=== PATIENT | male | born 1990 | race Caucasian/White ===

== ENCOUNTER 2016-12-03 16:16 | Emergency (ER) | payer MEDICAID ==
[~2016-12-03] VITALS: Ht 175.3 cm; Wt 99.8 kg
[~2016-12-03 16:16] MED LIST: ASPIRIN 325MG325 MG PO; BACTRIM DS 8001 TA1 PO; BUSPAR 10MG TAB10 MG PO; CARVEDILOL6.25 M1 PO; ISOSORBIDE DINI30 MG PO; KEFLEX 500MG.500 MG PO; LISINOPRIL5 MG NG; LORTAB 5/500 501 TAB PO; NOMEDS XX; SEPTRA DS 800 M1 TAB PO; VICODIN 5/500 T1 TAB PO
--- OUTSIDE RECORDS SUMMARY | 2016-12-03 16:27 | External Medical Summary Rpt ---
Author Author , Organization [employer] Address Unknown Phone Unavailable Care Team Providers Care Signals Intelligence Analyst Name Role Phone [employer] Unavailable Unavailable INC, [employer] [facility] Unavailable Unavailable [facility], [facility] EVANS, EVANS Unavailable Unavailable [facility] Unavailable Unavailable [facility], [facility] ARLEN ALLYSSA, Unavailable Unavailable ARLEN ALLYSSA JANET PATRICK, Unavailable Unavailable JANET PATRICK [id number], Unavailable Unavailable [id number] YELENA FOOTE, Unavailable Unavailable YELENA FOOTE JR ELZ, Unavailable Unavailable JR BRANDEN DIAZ NAN JESUS, ANN Unavailable Unavailable JESUS ANN JESUS, ANN Unavailable Unavailable JESUS [facility] Unavailable Unavailable INC, [facility], Unavailable Unavailable [facility] GEE EARL, GEE EARL Unavailable Unavailable [facility] Unavailable Unavailable 9, [facility] 9 [facility], Unavailable Unavailable [facility], [facility], [facility] Unavailable Unavailable OF NOT, [facility] KEELY JESUS, KEELY Unavailable Unavailable JESUS CONRADO, CONRADO Unavailable Unavailable [facility], Unavailable Unavailable [facility] CONTRERAS SCOTT, CONTRERAS SCOTT Unavailable Unavailable [facility] Unavailable Unavailable [facility], [facility] Unavailable Unavailable [facility]IANS, [facility] ELIANA RUBIO, Unavailable Unavailable ELIANA RUBIO Unavailable Unavailable SRINIVASA SMITH, Rik Galicia III, MD Purpose Continuity of Care Document - 08-26-2007 through 2016 Problems Code Diagnosis DOS Provider Status J0110 ACUTE 08-22-2016 [facility] SINUSITIS PHYSICIANS UNSPECIFIED Z6833 BODY MASS 08-22-2016 ST INDEX BMI GAIL 33.0-33.9 PHYSICIANS ADULT Z720 TOBACCO USE 08-22-2016 [facility] D40262 CELLULITIS 06-20-2016 ST OF LEFT GAIL UPPER LIMB PHYSICIANS R590 LOCALIZED 06-20-2016 ST ENLARGED GAIL LYMPH NODES PHYSICIANS Z6832 BODY MASS 06-20-2016 ST INDEX BMI GAIL 32.0-32.9 PHYSICIANS ADULT R002 PALPITATION 06-14-2016 [facility] R079 CHEST PAIN 06-14-2016 [facility] UNSPECIFIED PHYSICIANS GROUP I10 ESSENTIAL 01-21-2016 [facility] HYPERTENSIO INC N K219 GASTRO-ESOP 01-21-2016 [facility]UX [facility] DISEASE INC WITHOUT ESOPHAGITIS M56647 CUTANEOUS 01-21-2016 [facility]SCESS [facility]YSICIANS, BACK ANY PLLC PART EXCEPT BUTTOCK R41387 FURUNCLE OF 01-21-2016 [facility] BACK ANY [facility] PART EXCEPT INC BUTTOCK J209 ACUTE 06-08-2015 ST BRONCHITIS [facility] UNSPECIFIED PHYSICIANS R69 ILLNESS 06-08-2015 [facility] UNSPECIFIED INC REGION 9 I517 CARDIOMEGAL 04-25-2015 [facility] 4254 OTHER 03-01-2015 [facility] CARDIOMYOPA INC LONG 4139 OTHER AND 12-30-2014 [facility] UNSPECIFIED [facility] ANGINA INC PECT[place]IS 490 BRONCHITIS 12-30-2014 [facility] NOT [facility] SPECIFIED INC ACUTE OR CHRONIC 74055 12-30-2014 [facility] 9 4280 CONGESTIVE 12-20-2014 [facility] FAILURE INC UNSPECIFIED 07994 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-2014 [facility]ST[facility] HEART INC FAILURE 77558 ACUTE 12-20-2014 [facility] FAILURE O 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 51128 CHEST PAIN 12-20-2014 [facility]NSPECIFIED [facility] INC V1749 FAMILY 12-20-2014 [facility] HISTORY OF LAR OTHER CONSULTANTS CARDIOVASCU O LAR DISEASES 4240 MITRAL 12-14-2014 [facility] 7022 CELLULITIS 11-07-2014 ANN JESUS AND ABSCESS OF TRUNK 6829 CELLULITIS 11-07-2014 ST AND ABSCESS [facility] OF PHYSICIANS UNSPECIFIED SITE 36752 NAUSEA 07-19-2013 [facility] [address]492 PAIN IN 07-15-2013 [facility] SHOULDER [facility] 8409 SPRAIN&STRA 07-15-2013 ST IN UNSPEC GA[facility] SITE 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 V1204 PERSONAL HX 07-15-2013 ST OF [facility]IL METHICILLIN 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 305.1 305.1 05-20-2013 [place] TOBACCO USE [facility] 682.2 682.2 05-20-2013 [place] CELLULITIS [facility] 4619 ACUTE 08-01-2008 PATIENT SINUSITIS, FIRST PHYS UNSPECIFIED 7862 COUGH 08-01-2008 PATIENT FIRST PHYS 3670 HYPERMETROP 01-05-2008 TREVER FOOTE J01.10 Acute frontal sinusitis, unspecified L03.114 Cellulitis of left upper limb R59.0 Localized enlarged lymph nodes Z72.0 Tobacco use Allergies, Adverse Reactions, Alerts Type Allergy to substance Adverse Reaction to Substance Substance Reaction Severity NO KNOWN ALLERGIES Unknown Unknown Medications Na ND Rx Da Fi Fi Am Da Di Ph RX Ph St me C No te ll ll ou ys ag ar # ys at rm s nt no ma ic us Or Da si cy ia de te s n re d IS 49 06 06 60 30 00 KE Ac OS 88 -0 -3 .0 00 NT ti OR 40 4- 0- 00 00 UC ve BI 00 20 20 86 [place] DE 90 17 17 43 1 36 CV DN S PH 30 AR MA MG CY TA LL BL C, ET DB A CV S PH AR MA CY #0 54 37 LI 68 05 06 60 30 00 KE Ac SI 18 -1 -1 .0 00 NT ti NO 00 8- 6- 00 00 UC ve TN 51 20 20 83 [place] 30 17 17 59 5 3 10 CV S MG PH AR TA MA BL CY ET LL C, DB A CV S PH AR MA CY #0 54 37 CA 00 05 06 60 30 00 KE Ac RV 37 -1 -1 .0 00 NT ti ED 83 8- 6- 00 00 UC ve IL 63 20 20 83 [place] OL 20 17 17 59 5 11 CV 6. S 25 PH AR MG MA CY TA BL LL ET C, DB A CV S PH AR MA CY #0 54 37 IS 49 05 06 60 30 00 KE Ac OS 88 -0 -0 .0 00 NT ti OR 40 6- 2- 00 00 UC ve BI 00 20 20 86 [place] DE 90 17 17 43 1 36 CV DN S PH 30 AR MA MG CY TA LL BL C, ET DB A CV S PH AR MA CY #0 54 37 LI 68 04 05 60 30 00 KE Ac SI 18 -1 -1 .0 00 NT ti NO 00 7- 2- 00 00 UC ve TN 51 20 20 83 [place] IL 30 17 17 59 5 3 10 CV S MG PH AR TA MA BL CY ET LL C, DB A CV S PH AR MA CY #0 54 37 CA 00 04 05 60 30 00 KE Ac RV 37 -1 -1 .0 00 NT ti ED 83 7- 2- 00 00 UC ve IL 63 20 20 83 [place] OL 20 17 17 59 5 11 CV 6. S 25 PH AR MG MA CY TA BL LL ET C, DB A CV S PH AR MA CY #0 54 37 IS 49 04 04 60 30 00 KE Ac OS 88 -0 -2 .0 00 NT ti OR 40 4- 8- 00 00 UC ve BI 00 20 20 86 [place] DE 90 17 17 43 1 36 CV DN S PH 30 AR MA MG CY TA LL BL C, ET DB A CV S PH AR MA CY #0 54 37 AM 00 03 04 20 10 00 KE Ac OX 78 -2 -2 .0 00 NT ti -C 11 3- 1- 00 00 UC ve LA 85 20 20 88 [place] V 22 17 17 07 87 0 60 CV 5- S 12 PH 5 AR MG MA CY TA BL LL ET C, DB A CV S PH AR MA CY #0 54 37 CA 00 03 04 60 30 00 KE Ac RV 37 -1 -1 .0 00 NT ti ED 83 9- 4- 00 UC ve IL 63 20 20 83 [place] OL 20 17 17 59 5 11 CV 6. S 25 PH AR MG MA CY TA BL LL ET C, DB A CV S PH AR MA CY #0 54 37 LI 68 03 04 60 30 00 KE Ac SI 18 -1 -1 .0 00 NT ti NO 00 9- 4- 00 00 UC ve TN 51 20 20 83 [place] 30 17 17 59 5 3 10 CV S MG PH AR TA MA BL CY ET LL C, DB A CV S PH AR MA CY #0 54 37 IS 49 03 03 60 30 00 KE Ac OS 88 -0 -3 .0 00 NT ti OR 40 5- 1- 00 00 UC ve BI 00 20 20 86 [place] DE 90 17 17 43 1 36 CV DN S PH 30 AR MA MG CY TA LL BL C, ET DB A CV S PH AR MA CY #0 54 37 LI 68 02 03 60 30 00 KE Ac SI 18 -1 -1 .0 00 NT ti NO 00 4- 0- 00 00 UC ve TN 51 20 20 83 [place] IL 30 17 17 59 5 3 10 CV S MG PH AR TA MA BL CY ET LL C, DB A CV S PH AR MA CY #0 54 37 CA 00 02 03 60 30 00 KE Ac RV 37 -1 -1 .0 00 NT ti ED 83 4- 0- 00 00 UC ve IL 63 20 20 83 [place] OL 20 17 17 59 5 11 CV 6. S 25 PH AR MG MA CY TA BL LL ET C, DB A CV S PH AR MA CY #0 54 37 IS 49 02 03 60 30 00 KE Ac OS 88 -0 -0 .0 00 NT ti OR 40 7- 3- 00 00 UC ve BI 00 20 20 86 [place] DE 90 17 17 43 1 36 CV DN S PH 30 AR MA MG CY TA LL BL C, ET DB A CV S PH AR MA CY #0 54 37 CE 68 01 02 40 10 00 KE Ac PH 18 -1 -1 .0 00 NT ti AL 00 9- 7- 00 00 UC ve EX 12 20 20 86 [place] 20 17 17 66 2 54 CV 50 S 0 PH MG AR MA CA CY PS UL LL E C, DB A CV S PH AR MA CY #0 54 37 LI 68 01 02 60 30 00 KE Ac SI 18 -1 -1 .0 00 NT ti NO 00 8- 0- 00 00 UC ve TN 51 20 20 83 [place] IL 30 17 17 59 5 3 10 CV S MG PH AR TA MA BL CY ET LL C, DB A CV S PH AR MA CY #0 54 37 CA 00 01 02 60 30 00 KE Ac RV 37 -1 -1 .0 00 NT ti ED 83 8- 0- 00 00 UC ve IL 63 20 20 83 [place] OL 20 17 17 59 5 11 CV 6. S 25 PH AR MG MA CY TA BL LL ET C, DB A CV S PH AR MA CY #0 54 37 IS 49 01 02 60 30 00 KE Ac OS 88 -0 -0 .0 00 NT ti OR 40 5- 3- 00 00 UC ve BI 00 20 20 83 [place] DE 90 17 17 31 1 29 CV DN S PH 30 AR MA MG CY TA LL BL C, ET DB A CV S PH AR MA CY #0 54 37 LI 68 12 01 60 30 00 KE Ac SI 18 -1 -1 .0 00 NT ti NO 00 6- 3- 00 00 UC ve TN 51 20 20 83 [place] 30 16 17 59 5 3 10 CV S MG PH AR TA MA BL CY ET LL C, DB A CV S PH AR MA CY #0 54 37 CA 00 12 01 60 30 00 KE Ac RV 37 -1 -1 .0 00 NT ti ED 83 6- 3- 00 00 UC ve IL 63 20 20 83 [place] OL 20 16 17 59 5 11 CV 6. S 25 PH AR MG MA CY TA BL LL ET C, DB A CV S PH AR MA CY #0 54 37 IS 49 12 01 60 30 00 KE Ac OS 88 -0 -0 .0 00 NT ti OR 40 9- 9- 00 00 UC ve BI 00 20 20 83 [place] DE 90 16 17 31 1 29 CV DN S PH 30 AR MA MG CY TA LL BL C, ET DB A CV S PH AR MA CY #0 54 37 SNOW 51 12 0 No LF 07 -1 AM 90 9- Lo ET 12 20 ng HO 82 13 er XA 0 ZO Ac LE ti -T ve MP DS TA BL ET AM 00 03 03 00 28 14 CV 48 KA Ac OX 09 -0 -1 .0 S 57 LF ti IC 33 2- 2- 00 PH 32 ve IL 10 20 20 AR LI 90 09 09 MA ND N 5 CY NA 50 C 0 #5 MG 43 7 CA PS UL E LO 00 03 03 00 30 30 CV 48 KA Ac RA 78 -0 -1 .0 S 57 LF ti TA 15 2- 2- 00 PH 30 ve DI 07 20 20 AR NE 70 09 09 MA ND 1 CY NA 10 C #5 MG 43 7 TA BL ET IB 55 03 03 00 10 4 CV 48 KE Ac UP 11 -0 -1 .0 S 64 ND ti RO 10 6- 2- 00 PH 15 AL ve FE 68 20 20 AR L N 40 09 09 MA LA 80 5 CY RO 0 Y MG #5 43 TA 7 BL ET 50 03 03 00 24 12 CV 48 KA Ac 38 -0 -1 0. S 57 LF ti 30 2- 2- 00 PH 34 ve 87 20 20 0 AR 21 09 09 MA ND 6 CY NA C #5 43 7 00 12 01 00 12 4 CV 47 SC Ac 47 -2 -0 0. S 90 MONSON ti 21 3- 1- 00 PH 53 CK ve 62 20 20 0 AR 81 08 09 MA BR 6 CY IA N #5 43 7 AM 00 12 01 00 14 7 CV 47 SC Ac OX 09 -2 -0 .0 S 90 MONSON ti IC 33 3- 1- 00 PH 52 CK ve IL 10 20 20 AR LI 90 08 09 MA BR N 5 CY IA 50 N 0 #5 MG 43 7 CA PS UL E SNOW 53 09 09 00 20 10 CV 46 KA Ac LF 74 -0 -1 .0 S 77 LF ti AM 60 2- 1- 00 PH 07 ve ET 27 20 20 AR HO 20 08 08 MA ND XA 5 CY NA ZO C LE #5 -T 43 MP 7 DS TA BL ET 60 03 04 00 24 6 CV 45 No Ac 25 -0 -0 0. S 08 t ti 80 6- 7- 00 PH 45 Av ve 77 20 20 0 AR ai 01 08 08 MA la 6 CY bl e #5 43 7 AM 00 02 03 00 30 10 CV 44 No Ac OX 09 -1 -2 .0 S 82 t ti IC 33 1- 6- 00 PH 39 Av ve IL 10 20 20 AR ai LI 90 08 08 MA la N 5 CY bl 50 e 0 #5 MG 43 7 CA PS UL E LO 00 02 03 00 30 30 CV 44 No Ac RA 78 -1 -2 .0 S 82 t ti TA 15 1- 6- 00 PH 40 Av ve DI 07 20 20 AR ai NE 70 08 08 MA la 1 CY bl 10 e #5 MG 43 7 TA BL ET Vital Signs 05-20-2013 17:53 Name Value Interpretat Reference Comment ion Range BP 82 mm[Hg] Diastolic BP Systolic 152 mm[Hg] Heart 88 /min Rate/Pulse O2% 100 % Respiratory 20 /min Rate 05-20-2013 17:01 Name Value Interpretat Reference Comment ion Range Body 98.1 [degF] Temperature BP 75 mm[Hg] Diastolic BP Systolic 131 mm[Hg] Heart 90 /min Rate/Pulse O2% 98 % Respiratory 22 /min Rate Procedures Procedure DOS Code Location Performer Comment ECG 04250 [facility]INE [facility] ECG INC INC W/LEAST 12 LDS TRCG ONLY W/O I&R ECG 04695 [facility] ROUTINE 7 PHYSICIAN ECG S GROUP W/LEAST 12 LDS I&R ONLY INCISION 77565 [facility] & 6 [facility] DRAINAGE INC INC ABSCESS SIMPLE/SI NGLE INCISION 07879 FRED DIAZ, & 6 PHYSICIAN JR ELZ DRAINAGE S, PLLC ABSCESS COMPLICAT ED/MULTIP LE SUSCEPTIB 61348 [facility] LTY STDY 6 [facility] ANTIMICRB INC INC IAL MICRO/AGA R DILUTJ CUL BACT 33004 [facility] XCPT 6 [facility] URINE INC INC BLOOD/STO OL AEROBIC ISOL CUL BACT 83380 [facility] AEROBIC 6 [facility] ADDL INC INC METHS DEFINITIV E EA ISOL INCISION 48418 FRED DIAZ, & 6 PHYSICIAN JR ELZ [facility]RAIN[facility], PLLC ABSCESS COMPLICAT ED/MULTIP LE INCISION 17221 [facility] & 6 [facility] DRAIN[facility] INC INC ABSCESS SIMPLE/SI NGLE NONEMERGE A0100 [facility] NC[facility] 6 INC TRANSPORT TRANSPORT REGION 9 ATION CO ATION; L TAXI NONEMERGE A0100 [facility] 5 INC TRANSPORT TRANSPORT REGION 9 ATION CO ATION; L TAXI NONEMERGE A0100 [facility] 5 INC TRANSPORT TRANSPORT REGION 9 ATION CO ATION; L TAX[place] ECHO 94084 [place] [facility] R-T 5 MEDICAL 2D SERV W/WOM-MOD FOUNDATIO E COMPL N SPEC&COLR D NONEMERGE A0100 [facility] 5 INC TRANSPORT TRANSPORT REGION 9 ATION CO ATION; L TAXI ECG 15730 [facility] ROUTINE 5 [facility] ECG INC INC W/LEAST 12 LDS TRCG ONLY W/O I&R ECG 30203 [facility] ROUTINE 5 [facility] ECG INC INC W/LEAST 12 LDS TRCG ONLY W/O I&R NONEMERGE A0100 [facility] 5 INC TRANSPORT TRANSPORT REGION 9 ATION CO ATION; L TAXI CATHETER C1725 [facility] TRANSLUMI 5 [facility] NAL INC INC ANGIOPLAS TY NON-LASER GUIDE C1769 [facility] WIRE 5 [facility] INC INC INTRDUCR/ C1894 [facility] SHEATH 5 [facility] NOT GUID INC INC INTRACARD EP NON-LASR BLOOD 09883 [facility] COUNT 5 [facility] COMPLETE INC INC AUTO&AUTO DIFRNTL WBC BLOOD 35644 [facility] GASES ANY 5 [facility] INC INC COMBINATI ON PH PCO2 PO2 CO2 HCO3 LOCM Q9967 [facility] [phone] 5 [facility] MG/ML INC INC IODINE CONCENTRA TION PER ML PROTHROMB 66897 [facility] IN TIME 5 [facility] INC INC INJECTION J1644 [facility] HEPARIN 5 [facility] SODIUM INC INC PER 1000 UNITS THROMBOPL 96704 [facility] ASTIN 5 [facility] TIME INC INC PARTIAL PLASMA/WH OLE BLOOD R & L HRT 00188 [facility] CATH 5 CULAR MAT WINJX HRT CONSULTAN ART& L TS O VENTR IMG BASIC 25119 [facility] METABOLIC 5 [facility] PANEL INC INC CALCIUM TOTAL NONEMERGE A0100 [facility] 5 INC TRANSPORT [facility]SP[facility] 9 [facility]; L TAXI ECHO 19258 BARBARA CHAVEZ [facility] R-T 5 MEDICAL 2D SERV W/WOM-MOD FOUNDATIO E COMPL N SPEC&COLR D NONEMERGE A0100 [facility] 5 INC TRANSPORT [facility] AT[facility]; L TAXI RADIOLOGI 76174 SAMIA Macedo 5 MEDICAL PATRICK EXAMINATI IMAGING ON CHEST ASS SINGLE VIEW FRONTAL BASIC [address] METABOLIC 4 [facility]IL PANEL MED CTR MED CTR CALCIUM HOTEL HOUSEKEEPER ST [facility]OTEL HOUSEK[address] ST TOTAL SEDIMENTA [address] TION RATE 4 GAIL GAIL RBC MED CTR MED CTR AUTOMATED HOTEL HOUSEK[address] [facility]LO[address] COUNT 4 GAIL GAIL COMPLETE MED CTR MED CTR AUTO&AUTO HOTEL HOUSEKEEPER ST HOTEL HOUSEKEEPER ST DIFRNTL WBC SHOULDER L3650 [facility] 4 TECHNOLOG TECHNOLOG FIG 8 IES INC IES INC ABDUCT RESTRAINE R PREFAB RADEX 95244 RADIOLOGY ARLEN SHOULDER 4 ALLYSSA COMPLETE ASSOCIATE MINIMUM 2 S OF NOTH VIEWS DETERMINA 58174 QAMAR FOOTE, TION 8 YELENA Miranda REFRACTIV E STATE FRAMES V2020 QAMAR FOOTE, PURCHASES 8 YELENA Miranda SPHERE V2100 QAMAR FOOTE, SINGLE 8 YELENA Ruben YELENA Miranda VISION PLANO +/- 4.00 PER LENS FITTING 12916 QAMAR FOOTE, SPECTACLE 8 YELENA Miranda S XCPT APHAKIA MONOFOCAL OPHTH 17076 QAMAR FOOTE, MEDICAL 8 YELENA Miranda YELENA Miranda XM&EVAL COMPRHNSV ESTAB PT 1/> OTHER 86.04 Rik SKIN & E. SUBQ I Grayson Carmona III Encounters Encounter Start End Date Code Location Performer Type Date OFFICE [facility] 7 GAIL T VISIT 15 PHYSICIAN MINUTES S OFFICE [facility]94[address] [facility] 7 7 GAIL T VISIT 15 PHYSICIAN MINUTES S HOSPITAL [facility] - 7 7 [facility]PAT[facility]EN INC T [facility] - 6 6 [facility] OUTPATIEN INC T EMERGENCY 47269 [facility] 6 6 [facility] DEPARTMEN INC T VISIT MODERATE SEVERITY EMERGENCY 21071 FRED DIAZ, 6 6 PHYSICIAN JR BRANDEN SARGENT S PLLC T VISIT HIGH/URGE NT SEVERITY EMERGENCY 17013 Abelardo ORR 6 PHYSICIAN JR BRANDEN SARGENT S PLLC T VISIT MODERATE SEVERITY EMERGENCY 74839 [facility] 6 6 [facility] DEPARTMEN INC T VISIT HIGH/URGE NT SEVERITY HOSPITAL [facility] - 6 6 [facility] OUTPATIEN [facility] T OFFICE 08246 [facility] OUTPATIEN 6 6 GAIL JESUS T VISIT 15 PHYSICIAN MINUTES HOSPITAL [facility] - 5 5 [facility] OUTPATIEN INC [facility] - 5 5 [facility] OUTPATIEN [facility] - 5 5 [facility] OUTPATIEN [facility] T OFFICE 56244 [facility] OUTPATIEN 5 5 GAIL JESUS T VISIT 15 PHYSICIAN MINUTES S EMERGENCY 07140 ANN JUAREZ 5 5 JESUS JESUS DEPARTMEN T VISIT HIGH/URGE NT SEVERITY HOSPITAL ST - 4 4 GAIL OUTPATIEN MED CTR T [facility] ST - 4 4 GAIL OUTPATIEN MED CTR T [facility] EMERGENCY 76753 4 4 GAIL DEPARTMEN MED CTR T VISIT [facility] MODERATE SEVERITY Emergency NÉSTOR Galicia (ER) 3 15:11 3 17:54 [facility] Rik Solis OFFICE 82502 PATIENT RUBIOJORDAN 9 9 FIRST ELIANA T VISIT PHYS 15 MINUTES
--- OUTSIDE RECORDS SUMMARY | 2016-12-03 16:27 | External Medical Summary Rpt ---
Author Author , Organization [employer] Address Unknown Phone Unavailable Care Team Providers Care Film And Video Editor Name Role Phone [employer] Unavailable Unavailable [...] JR ELZ, Unavailable Unavailable JR BRANDEN DIAZ ANN JESUS, ANN Unavailable Unavailable JESUS ANN JESUS, ANN Unavailable Unavailable [facility] Unavailable Unavailable INC, [facility], Unavailable Unavailable [facility] Un[facility], [facility] GEE EARL, GEE EARL Unavailable Unavailable [facility] Unavailable Unavailable 9, [facility], Unavailable Unavailable [facility], [facility], [facility] Unavailable Unavailable OF NOT, [facility] KEELY JESUS, KEELY Unavailable Unavailable JESUS CONRADO, CONRADO Unavailable Unavailable [facility], Unavailable Unavailable [facility] CONTRERAS SCOTT, CONTRERAS SCOTT Unavailable Unavailable [facility] Unavailable Unavailable ENGINEERING TEST SPECIALIST ST, [facility] ENGINEERING TEST SPECIALIST [facility] Unavailable Unavailable [facility]ICIANS, [facility] EILANA RUBIO, Unavailable Unavailable ELIANA RUBIO Unavailable Unavailable SRINIVASA SMITH, Rik Galicia III, MD Purpose Continuity of Care Document - 08-26-2007 through 2016 Problems Code Diagnosis DOS Provider Status J0110 ACUTE 08-22-2016 [facility] SINUSITIS PHYSICIANS UNSPECIFIED Z6833 BODY MASS 08-22-2016 ST INDEX BMI GAIL 33.0-33.9 PHYSICIANS ADULT Z720 TOBACCO USE 08-22-2016 ST [facility] PHYSICIANS J94193 CELLULITIS 06-20-2016 ST OF LEFT GAIL UPPER LIMB PHYSICIANS R590 LOCALIZED 06-20-2016 ST ENLARGED GAIL LYMPH NODES PHYSICIANS Z6832 BODY MASS 06-20-2016 ST INDEX BMI GAIL 32.0-32.9 PHYSICIANS ADULT R002 PALPITATION 06-14-2016 [facility] INC R079 CHEST PAIN 06-14-2016 [facility] UNSPECIFIED PHYSICIANS GROUP I10 ESSENTIAL 01-21-2016 [facility] HYPERTENSIO INC N K219 GASTRO-ESOP 01-21-2016 [facility] H REFLUX [facility] DISEASE INC WITHOUT ESOPHAGITIS H34195 CUTANEOUS 01-21-2016 [facility] ABSCESS PHYSICIANS, BACK ANY PLLC PART EXCEPT BUTTOCK U24539 FURUNCLE OF 01-21-2016 [facility] BACK ANY [facility] PART EXCEPT INC BUTTOCK J209 ACUTE 06-08-2015 ST BRONCHITIS [facility] UNSPECIFIED PHYSICIANS R69 ILLNESS 06-08-2015 [facility] UNSPECIFIED INC REGION 9 I517 CARDIOMEGAL 04-25-2015 [facility] 4254 OTHER 03-01-2015 [facility] CARDIOMYOPA INC LONG 4139 OTHER AND 12-30-2014 [facility] UNSPECIFIED [facility] ANGINA INC PECTORIS 490 BRONCHITIS 12-30-2014 [facility] NOT [facility] SPECIFIED INC ACUTE OR CHRONIC 52098 12-30-2014 [facility] 9 4280 CONGESTIVE 12-20-2014 [facility] FAILURE INC UNSPECIFIED 86661 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-2014 [facility] SYSTOLIC [facility] HEART INC FAILURE 40303 ACUTE 12-20-2014 [facility] FAILURE O 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 51061 CHEST PAIN 12-20-2014 [facility] UNSPECIFIED [facility] INC V1749 FAMILY 12-20-2014 [facility] HISTORY OF LAR OTHER CONSULTANTS CARDIOVASCU O LAR DISEASES 4240 MITRAL 12-14-2014 [facility] 2822 CELLULITIS 11-07-2014 ANN JESUS AND ABSCESS OF TRUNK 6829 CELLULITIS 11-07-2014 ST AND ABSCESS [facility] OF PHYSICIANS UNSPECIFIED SITE 08010 NAUSEA 07-19-2013 [facility] ENGINEERING TEST [place]IST [facility] [address]56 PAIN IN 07-15-2013 RAD[facility]OLOGY JOINT, ASSOCIATES [facility] 8409 SPRAIN&STRA 07-15-2013 ST IN UNSPEC [facility] SITE MED CTR ENGINEERING TEST SPECIALIST SHOULDER&UP ST PER ARM V1204 PERSONAL HX 07-15-2013 ST OF [facility] METHIC[facility]IN [facility] CTR ENGINEERING TEST SPECIALIST RESIST ST STAPH AUREUS 305.1 305.1 05-20-2013 Aurelia TOBACCO USE [facility] 682.2 682.2 05-20-2013 Aurelia CELLULITIS [facility] 4619 ACUTE 08-01-2008 PATIENT SINUSITIS, FIRST PHYS [...] 00 8- 6- 00 00 UC ve [place] 51 20 20 83 [place] 30 [...] 00 7- 2- 00 00 UC ve [place] 51 20 20 83 [place] 30 [...] 00 9- 4- 00 00 UC ve [place] 51 20 20 83 [place] 30 [...] 00 4- 0- 00 00 UC ve [place] 51 20 20 83 [place] 30 [...] 00 8- 0- 00 00 UC ve [place] 51 20 20 83 [place] 30 [...] 00 6- 3- 00 00 UC ve [place] 51 20 20 83 [place] 30 [...] 20 AR LI 90 09 09 MA NC N 5 CY NA 50 C 0 #5 MG 43 7 CA PS UL E LO 00 03 03 00 30 30 CV 48 KA Ac RA 78 -0 -1 .0 S 57 LF ti TA 15 2- 2- 00 PH 30 ve DI 07 20 20 AR NE 70 09 09 MA NC 1 CY NA 10 C #5 MG [...] 20 0 AR 21 09 09 MA NC 6 CY NA C #5 43 7 [...] 20 AR HO 20 08 08 MA NC XA 5 CY NA ZO C LE [...] Procedure DOS Code Location Performer Comment ECG 41657 [facility] ROUTINE 7 [facility] ECG INC INC W/LEAST 12 LDS TRCG ONLY W/O I&R ECG 86583 [facility] R[facility] 7 PHYSICIAN ECG S GROUP W/LEAST 12 LDS I&R ONLY INCISION 20535 [facility] & 6 [facility] DRAINAGE INC INC ABSCESS SIMPLE/SI NGLE INCISION 73917 FRED DIAZ, & 6 PHYSICIAN JR ELZ DRAINAGE S, PLLC ABSCESS COMPLICAT ED/MULTIP LE SUSCEPTIB 83689 [facility] LTY STDY 6 [facility] [place] [place] [facility] ANTIMICRB INC INC IAL MICRO/AGA R DILUTJ CUL BACT 26813 [facility] XCPT 6 [facility] [place] [place] [facility] URINE INC INC BLOOD/STO OL AEROBIC ISOL CUL BACT 55351 [facility] AEROBIC 6 [facility] ADDL INC INC METHS DEFINITIV E EA ISOL INCISION 71320 FRED DIAZ, & 6 PHYSICIAN JR ELZ DRAINAGE S, PLLC ABSCESS COMPLICAT ED/MULTIP LE INCISION 39358 [facility] & 6 MEM HOS[facility] MEM [...] 9 ATION CO ATION; L TAXI ECHO 92465 [place] [facility] R-T 5 MEDICAL 2D SERV W/WOM-MOD FOUNDATIO E COMPL N SPEC&COLR D NONEMERGE A0100 LKLP CAC [facility] NCY 5 INC TRANSPORT TRANSPORT REGION 9 ATION CO ATION; L TAXI ECG 85037 [facility] ROUTINE 5 MEM [facility] ECG INC INC W/LEAST 12 LDS TRCG ONLY W/O I&R ECG 05251 [facility] ROUTINE 5 [facility] ECG INC INC W/LEAST 12 LDS TRCG ONLY W/O I&R NONEMERGE A0100 LKLP CAC [facility] NCY 5 INC TRANSPORT TRANSPORT REGION 9 ATION CO ATION; L TAXI CATHETER C1725 [facility] TRANSLUMI 5 [facility] NAL INC INC ANGIOPLAS TY NON-LASER GUIDE C1769 [facility] WIRE 5 [facility] INC INC INTRDUCR/ C1894 [facility] SHEATH 5 [facility] NOT GUID INC INC INTRACARD EP NON-LASR BLOOD 41683 [facility] COUNT 5 [facility] COMPLETE INC INC AUTO&AUTO DIFRNTL WBC BLOOD 19738 [facility] GASES ANY 5 [facility] INC INC COMBINATI ON PH PCO2 PO2 CO2 HCO3 LOCM Q9967 [facility] [phone] 5 [facility] MG/ML INC INC IODINE CONCENTRA TION PER ML PROTHROMB 77238 [facility] IN TIME 5 [facility] INC INC INJECTION J1644 [facility] HEPARIN 5 [facility] SODIUM INC INC PER 1000 UNITS THROMBOPL 18797 [facility] ASTIN 5 [facility] TIME INC INC PARTIAL PLASMA/WH OLE BLOOD R & L HRT 56748 CARDIOVAS CONRADO CATH 5 CULAR MAT WINJX HRT CONSULTAN ART& L TS O VENTR IMG BASIC 58228 [facility] METABOLIC 5 [facility] PANEL INC INC CALCIUM TOTAL NONEMERGE A0100 LKLP CAC [place] NCY 5 INC TRANSPORT TRANSPORT REGION 9 [facility] AT[facility]; L TAXI ECHO 70736 BARBARA CHAVEZ TTHRC R-T 5 MEDICAL 2D SERV W/WOM-MOD FOUNDATIO E COMPL N SPEC&COLR D NONEMERGE A0100 LKLP CAC [place] NCY 5 INC TRANSPORT TRANSPORT REGION 9 ATFORMERLY [facility], [facility] CO ATION; L TAXI RADIOLOGI 11460 SAMIA Macedo 5 MEDICAL PATRICK EXAMINATI IMAGING ON CHEST ASS SINGLE VIEW FRONTAL BASIC [address] METABOLIC 4 [facility]IL GAIL PANEL MED CTR MED CTR CALCIUM ENGINEERING TEST SPECIALIST ST ENGINEERING TEST SPECIALIST ST TOTAL SEDIMENTA [address] TION RATE 4 GAIL GAIL RBC MED CTR MED CTR AUTOMATED ENGINEERING TEST SPECIALIST ST ENGINEERING TEST SPECIALIST ST BLOOD [address] COUNT 4 GAIL GAIL COMPLETE MED CTR MED CTR AUTO&AUTO ENGINEERING TEST SPECIALIST ST ENGINEERING TEST SPECIALIST ST DIFRNTL WBC SHOULDER L3650 [facility] 4 TECHNOLOG TECHNOLOG FIG 8 IES INC IES INC ABDUCT RESTRAINE R PREFAB RADEX 78514 RADIOLOGY ARLEN SHOULDER 4 ALLYSSA COMPLETE ASSOCIATE MINIMUM 2 S OF NOTH VIEWS DETERMINA 98907 QAMAR FOOTE, TION 8 YELENA Miranda REFRACTIV E STATE FRAMES V2020 QAMAR FOOTE, PURCHASES 8 YELENA Miranda SPHERE V2100 QAMAR FOOTE, SINGLE 8 YELENA Ruben YELENA Miranda VISION PLANO +/- 4.00 PER LENS FITTING 81915 QAMAR FOOTE, SPECTACLE 8 YELENA Miranda S XCPT APHAKIA MONOFOCAL OPHTH 74121 QAMAR FOOTE, MEDICAL 8 YELENA Miranda YELENA Miranda XM&EVAL COMPRHNSV ESTAB PT 1/> OTHER 86.04 Rik SKIN & E. SUBQ I Grayson Carmona III Encounters Encounter Start End Date Code Location Performer Type Date OFFICE [facility]5650 [facility] 7 [facility]IL T VISIT 15 PHYSICIAN MINUTES S OFFICE 0[address] [facility] 7 7 GAIL T VISIT 15 PHYSICIAN MINUTES S HOSPITAL [facility] 7 7 [facility] OUTPATIEN INC T [facility] - 6 6 [facility] OUTPATIEN INC T EMERGENCY 62948 [facility] 6 6 [facility] DEPARTMEN INC T VISIT MODERATE SEVERITY EMERGENCY 09824 FRED DIAZ, 6 6 PHYSICIAN JR BRANDEN SARGENT S PLLC T VISIT HIGH/URGE NT SEVERITY EMERGENCY 49401 Abelardo ORR 6 PHYSICIAN JR BRANDEN SARGENT S PLLC T VISIT MODERATE SEVERITY EMERGENCY 11716 [facility] 6 6 [facility] DEPARTMEN INC T VISIT HIGH/URGE NT SEVERITY HOSPITAL [facility] - 6 6 [facility] OUTPATIEN [facility] T OFFICE 79953 [facility] OUTPATIEN 6 6 GAIL JESUS T VISIT 15 PHYSICIAN MINUTES HOSPITAL [facility] - 5 5 [facility] OUTPATIEN INC [facility] - 5 5 [facility] OUTPATIEN [facility] H[facility] - 5 5 [facility] OUTPATIEN [facility] T OFFICE 20811 [facility] OUTPATIEN 5 5 GAIL JESUS T VISIT 15 PHYSICIAN MINUTES S EMERGENCY 09011 ANN JUAREZ 5 5 JESUS JESUS DEPARTMEN T VISIT HIGH/URGE NT SEVERITY HOSPITAL ST - 4 4 GAIL OUTPATIEN MED CTR T [facility] ST - 4 4 GAIL OUTPATIEN MED CTR T [facility] EMERGENCY 61115 4 4 GAIL DEPARTMEN MED CTR T VISIT [facility] MODERATE SEVERITY Emergency NÉSTOR Galicia (ER) 3 15:11 3 17:54 [facility] Rik Solis OFFICE 16571 PATIENT RUBIOJORDAN 9 9 FIRST ELIANA T VISIT PHYS 15 MINUTES
--- OUTSIDE RECORDS SUMMARY | 2016-12-03 16:29 | External Medical Summary Rpt ---
Author Author , Organization [employer] Address Unknown Phone Unavailable Care Team Providers Care Betting Clerk Name Role Phone [employer] Unavailable Unavailable INC, [employer] [facility] Unavailable Unavailable [facility]ATION [facility], [facility] EVANS, EVANS Unavailable Unavailable [facility] Unavailable Unavailable [facility], [facility] ARLEN ALLYSSA, Unavailable Unavailable ARLEN ALLYSSA JANET PATRICK, Unavailable Unavailable JANET PATRICK [facility], Unavailable Unavailable [facility] YELENA FOOTE, Unavailable Unavailable YELENA FOOTE JR ELZ, Unavailable Unavailable JR BRANDEN DIAZ ANN JESUS, ANN Unavailable Unavailable JESUS ANN JESUS, ANN Unavailable Unavailable JESUS [facility] Unavailable Unavailable INC, [facility], Unavailable Unavailable [facility] Un[facility] Un[facility], [facility] GEE EARL, GEE EARL Unavailable Unavailable [facility] Unavailable Unavailable 9, [facility], [facility]available Unavailable [facility], [facility], [facility] Unavailable Unavailable [facility], [facility] KEELY JESUS, KEELY Unavailable Unavailable JESUS KAILA BRADY Unavailable Unavailable [facility] Unavailable Unavailable CONTRERAS SCOTT, BEN SCOTT Unavailable Unavailable [facility] Unavailable Unavailable FUEL ATTENDANT , [facility] FUEL ATTENDANT [facility] Unavailable Unavailable PHYSICIANS, [facility] ELIANA RUBIO, Unavailable Unavailable ELIANA RUBIO Purpose Continuity of Care Document - 08-26-2007 through 2016 Problems Code Diagnosis DOS Provider Status J0110 ACUTE 08-22-2016 FRONTAL [facility]IL SINUSITIS PHYSICIANS UNSPECIFIED Z6833 BODY MASS 08-22-2016 ST INDEX BMI GAIL 33.0-33.9 PHYSICIANS ADULT Z720 TOBACCO USE 08-22-2016 [facility] PH[facility]ICIANS R11945 CELLULITIS 06-20-2016 ST OF LEFT GAIL UPPER LIMB PHYSICIANS R590 LOCALIZED 06-20-2016 ENLARGED GAIL LYMPH NODES PHYSICIANS Z6832 BODY MASS 06-20-2016 ST INDEX BMI GAIL 32.0-32.9 PHYSICIANS ADULT R002 PALPITATION 06-14-2016 [facility] INC R079 CHEST PAIN 06-14-2016 [facility] UNSPECIFIED PHYSICIANS GROUP I10 ESSENTIAL 01-21-2016 [facility] HYPERTENSIO INC N K219 GASTRO-ESOP 01-21-2016 [facility] H REFLUX [facility] DISEASE INC WITHOUT ESOPHAGITIS Z80822 CUTANEOUS 01-21-2016 [facility] ABSCESS PHYSICIANS, BACK ANY PLLC PART EXCEPT BUTTOCK S31175 FURUNCLE OF 01-21-2016 [facility] BACK ANY [facility] PART EXCEPT INC BUTTOCK J209 ACUTE 06-08-2015 ST BRONCHITIS GAIL UNSPECIFIED PHYSICIANS R69 ILLNESS 06-08-2015 [facility] CAC UNSPECIFIED INC REGION 9 I517 CARDIOMEGAL 04-25-2015 [facility] 4254 OTHER 03-01-2015 [facility] CARDIOMYOPA INC LONG 4139 OTHER AND 12-30-2014 [facility] UNSPECIFIED [facility] ANGINA INC PECTORIS 490 BRONCHITIS 12-30-2014 [facility] NOT [facility] SPECIFIED INC ACUTE OR CHRONIC 73927 12-30-2014 [facility] CAC INC REGION 9 4280 CONGESTIVE 12-20-2014 [facility] FAILURE INC UNSPECIFIED 44950 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-2014 [facility] SYSTOLIC [facility] HEART INC FAILURE 22855 ACUTE 12-20-2014 [facility] FAILURE O 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 71765 CHEST PAIN 12-20-2014 [facility] UNSPECIFIED [facility] INC V1749 FAMILY 12-20-2014 [facility] HISTORY OF LAR OTHER CONSULTANTS CARDIOVASCU O LAR DISEASES 4240 MITRAL 12-14-2014 [employer] [facility] 6822 CELLULITIS 11-07-2014 ANN JESUS AND ABSCESS OF TRUNK 6829 CELLULITIS 11-07-2014 ST AND ABSCESS [facility]IL OF PHYSICIANS UNSPECIFIED SITE 99902 NAUSEA 07-19-2013 [facility] FUEL ATTENDANT ST [address]7086 PAIN IN 07-15-2013 [facility], ASSOCIATES [facility] 8409 SPRAIN&STRA 07-15-2013 ST IN UNSPEC GAIL SITE MED CTR FUEL ATTENDANT SHOULDER&UP ST PER ARM V1204 PERSONAL HX 07-15-2013 [facility] METHICILLIN MED CTR FUEL ATTENDANT RESIST ST STAPH AUREUS 4619 ACUTE 08-01-2008 PATIENT SINUSITIS, FIRST PHYS UNSPECIFIED 7862 COUGH 08-01-2008 PATIENT FIRST PHYS 3670 HYPERMETROP 01-05-2008 TREVER FOOTE Medications Na ND Rx Da Fi Fi [...] 00 8- 6- 00 00 UC ve [place] 51 20 20 83 [place] 30 [...] 00 7- 2- 00 00 UC ve [place] 51 20 20 83 [place] 30 [...] 00 9- 4- 00 00 UC ve [place] 51 20 20 83 [place] 30 17 17 59 5 3 10 CV S MG PH AR TA MA BL CY ET LL C, DB A CV S PH AR MA CY #0 54 37 CA 00 03 04 60 30 00 KE Ac RV 37 -1 -1 .0 00 NT ti ED 83 9- 4- 00 00 UC ve IL 63 20 [...] 00 4- 0- 00 00 UC ve [place] 51 20 20 83 [place] 30 [...] 00 8- 0- 00 00 UC ve [place] 51 20 20 83 [place] 30 [...] 00 6- 3- 00 00 UC ve [place] 51 20 20 83 [place] 30 [...] CY #0 54 37 AM 00 03 03 00 28 14 CV 48 KA Ac OX 09 -0 -1 .0 S 57 LF ti IC 33 2- 2- 00 PH 32 ve IL 10 20 20 AR LI 90 09 09 MA ME N 5 CY NA 50 C 0 #5 MG 43 7 CA PS UL E LO 00 03 03 00 30 30 CV 48 KA Ac RA 78 -0 -1 .0 S 57 LF ti TA 15 2- 2- 00 PH 30 ve DI 07 20 20 AR NE 70 09 09 MA ME 1 CY NA 10 C #5 MG [...] 20 0 AR 21 09 09 MA ME 6 CY NA C #5 43 7 [...] 20 AR HO 20 08 08 MA ME XA 5 CY NA ZO C LE #5 -T 43 MP 7 DS TA BL ET 60 03 04 00 24 6 CV 45 No Ac 25 -0 -0 0. S 08 t ti 80 6 PH 45 Av ve 77 20 20 0 AR ai 01 08 08 MA la 6 CY bl e #5 43 7 AM 00 02 03 00 30 10 CV 44 No Ac OX 09 -1 -2 .0 S 82 t ti IC 33 6 PH 39 Av ve IL 10 20 20 AR ai LI 90 08 08 MA la N 5 CY bl 50 e 0 #5 MG 43 7 CA PS UL E LO 00 02 03 00 30 30 CV 44 No Ac RA 78 -1 -2 .0 S 82 t ti TA 15 PH 40 Av ve DI 07 20 20 AR ai NE 70 08 08 MA la 1 CY bl 10 e #5 MG 43 7 TA BL ET Procedures Procedure DOS Code Location Performer Comment ECG 84465 [facility] ROUTINE 7 PHYSICIAN ECG S GROUP W/LEAST 12 LDS I&R ONLY ECG 47430 [facility] ROUTINE 7 [facility] ECG INC INC W/LEAST 12 LDS TRCG ONLY W/O I&R SUSCEPTIB 56842 [facility] LTY STDY 6 [facility] ANTIMICRB INC INC IAL MICRO/AGA R DILUTJ CUL BACT 94484 [facility] XCPT 6 [facility] URINE INC INC BLOOD/STO OL AEROBIC ISOL CUL BACT 80894 [facility] AEROBIC 6 [facility] ADDL INC INC METHS DEFINITIV E EA ISOL INCISION 97351 [facility] & 6 [facility] DRAINAGE INC INC ABSCESS SIMPLE/SI NGLE INCISION 10301 FRED DIAZ & 6 PHYSICIAN JR ELZ DRAINAGE S, PLLC ABSCESS COMPLICAT ED/MULTIP LE INCISION 10631 FRED DIAZ & 6 PHYSICIAN JR ELZ DRAINAGE S, PLLC ABSCESS COMPLICAT ED/MULTIP LE INCISION 68484 [facility] & 6 [facility] DRAINAGE INC INC ABSCESS SIMPLE/SI NGLE NONEMERGE A0100 LKLP CAC [facility] NCY 6 INC [facility]SP[facility]; L TAXI NONEMERGE A0100 LKLP CAC [facility] NCY 5 INC TRANSPORT TRANSPORT REGION 9 ATION CO ATION; L TAXI ECHO 67019 [place] [facility] R-T 5 MEDICAL 2D SERV W/WOM-MOD FOUNDATIO E COMPL N SPEC&COLR D NONEMERGE A0100 LKLP CAC [facility] NCY 5 INC TRANSPORT TRANSPORT REGION 9 ATION CO ATION; L TAXI NONEMERGE A0100 LKLP CAC VAZQUEZS NCY 5 INC TRANSPORT [facility] AT[facility]; L TAXI ECG 98196 [facility] ROUTINE 5 [facility] ECG INC INC W/LEAST 12 LDS TRCG ONLY W/O I&R ECG 10051 [facility] ROUTINE 5 [facility] ECG INC INC W/LEAST 12 LDS TRCG ONLY W/O I&R NONEMERGE A0100 LKLP CAC BENMICHAELS NCY 5 INC TRANSPORT TRANSPORT REGION [facility] ATION; L TAXI R & L HRT 37469 [facility] CATH 5 [facility] WINJX HRT INC INC ART& L VENTR IMG CATHETER C1725 [facility] TRANSLUMI 5 [facility] NAL INC INC ANGIOPLAS TY NON-LASER GUIDE C1769 [facility] WIRE 5 [facility] INC INC LOCM Q9967 [facility] 300-399 5 [facility] MG/ML INC INC IODINE CONCENTRA TION PER ML BASIC 30354 [facility] METABOLIC 5 [facility] PANEL INC INC CALCIUM TOTAL INTRDUCR/ C1894 [facility] SHEATH 5 [facility] NOT GUID INC INC INTRACARD EP NON-LASR BLOOD 48596 [facility] GASES ANY 5 [facility] INC INC COMBINATI ON PH PCO2 PO2 CO2 HCO3 THROMBOPL 45861 [facility] ASTIN 5 [facility] TIME INC INC PARTIAL PLASMA/WH OLE BLOOD BLOOD 18306 [facility] COUNT 5 [facility] COMPLETE INC INC AUTO&AUTO DIFRNTL WBC INJECTION J1644 [facility] HEPARIN 5 [facility] SODIUM INC INC PER 1000 UNITS PROTHROMB 50682 [facility] IN TIME 5 [facility] INC INC NONEMERGE A0100 LKLP CAC [facility] NCY 5 INC TRANSPORT TRANSPORT REGION 9 ATION CO ATION; L TAXI NONEMERGE A0100 LKLP CAC [facility] NCY 5 INC TRANSPORT TRANSPORT REGION 9 ATION CO ATION; L TAXI ECHO 87181 BARBARA CONTRERAS SCOTT TTHRC R-T 5 MEDICAL 2D SERV W/WOM-MOD FOUNDATIO E COMPL N SPEC&COLR D RADIOLOGI 38756 [place] JANET C 5 MEDICAL PATRICK EXAMINATI IMAGING ON CHEST ASS SINGLE VIEW FRONTAL SEDIMENTA [address] TION RATE 4 GAIL GAIL RBC MED CTR MED CTR AUTOMATED FUEL ATTENDANT ST FUEL ATTENDANT ST BASIC [address] METABOLIC 4 GAIL GAIL PANEL MED CTR MED CTR CALCIUM FUEL ATTENDANT ST FUEL ATTENDANT ST TOTAL BLOOD [address] COUNT 4 GAIL GAIL COMPLETE MED CTR MED CTR AUTO&AUTO FUEL ATTENDANT ST FUEL ATTENDANT ST DIFRNTL WBC SHOULDER L3650 [facility] 4 TECHNOLOG TECHNOLOG FIG 8 IES INC IES INC ABDUCT RESTRAINE R PREFAB RADEX 33206 RADIOLOGY ARLEN SHOULDER 4 ALLYSSA COMPLETE ASSOCIATE MINIMUM 2 S OF NOTH VIEWS DETERMINA 25615 QAMAR FOOTE TION 8 YELENA Miranda REFRACTIV E STATE SPHERE V2100 QAMAR FOOTE SINGLE 8 YELENA Miranda VISION PLANO +/- 4.00 PER LENS OPHTH 89597 QAMAR FOOTE, MEDICAL 8 YELENA Miranda XM&EVAL COMPRHNSV ESTAB PT 1/> FITTING 40829 QAMAR FOOTE SPECTACLE 8 YELENA Miranda S XCPT APHAKIA MONOFOCAL FRAMES V2020 QAMAR FOOTE PURCHASES 8 YELENA Miranda Encounters Encounter Start End Date Code Location Performer Type Date OFFICE 74381 [facility] 7 7 [facility] VISIT 15 PHYSICIAN MINUTES S OFFICE 95318 [facility] 7 7 GAIL T VISIT 15 PHYSICIAN MINUTES S HOSPITAL [facility] - 7 7 [facility] OUTPATIEN INC T [facility] EMERGENCY [id number] [facility] 6 6 [facility] T VISIT MODERATE SEVERITY EMERGENCY 11138 FRED IDAZ, 6 6 PHYSICIAN JR [facility]TER[facility], [facility] T VISIT HIGH/URGE NT SEVERITY EMERGENCY 59404 FRED DIAZ, 6 6 PHYSICIAN JR [facility]TERO [facility], [facility] T VISIT MODERATE SEVERITY HOSPITAL [facility] - 6 6 [facility] T EMERGENCY 00513 [facility] 6 6 [facility] T VISIT HIGH/URGE NT SEVERITY OFFICE [id number] [facility] 6 6 GAIL JESUS T VISIT 15 PHYSICIAN MINUTES S [facility]OSP[facility] - [facility] 5 [facility] 5 [facility] 5 [facility] T OFFICE [id number] [facility] 5 5 GAIL JESUS T VISIT 15 PHYSICIAN MINUTES S EMERGENCY [id number] ANN JUAREZ 5 5 [facility]URGE NT SEVERITY [facility] - 4 4 [facility] - 4 4 [facility] T [facility]UEL ATTENDANT EMERGENCY [address] [facility] 4 4 GAIL JERRY DEPARTMEN MED CTR T VISIT MODERATE SEVERITY OFFICE [id number] PATIENT JORDAN RUBIO 9 9 FIRST ELIANA T VISIT PHYS 15 MINUTES
--- OUTSIDE RECORDS SUMMARY | 2016-12-03 16:29 | External Medical Summary Rpt ---
Author Author , Organization [employer] Address Unknown Phone Unavailable Care Team Providers Care Recruiting Team Lead Name Role Phone [employer] Unavailable Unavailable [...] Unavailable Unavailable INC, [facility], Unavailable Unavailable [facility] Un[facility] Un[facility], [facility] GEE EARL, GEE EARL Unavailable Unavailable [facility] Unavailable Unavailable 9, [facility], Unavailable Unavailable [facility], [facility], [facility] Unavailable Unavailable [facility], [facility] KEELY JESUS, KEELY Unavailable Unavailable JESUS KAILA BRADY Unavailable Unavailable [facility] Unavailable Unavailable CONTRERAS SCOTT, BEN SCOTT Unavailable Unavailable [facility] Unavailable Unavailable [facility] , [facility] Unavailable Unavailable [facility]ANS, [facility] ELIANA RUBIO, Unavailable Unavailable ELIANA RUBIO Purpose Continuity of Care Document - 08-26-2007 through 2016 Problems Code Diagnosis DOS Provider Status J0110 ACUTE 08-22-2016 FRONTAL GAIL SINUSITIS PHYSICIANS UNSPECIFIED Z6833 BODY MASS 08-22-2016 ST INDEX BMI GAIL 33.0-33.9 PHYSICIANS ADULT Z720 TOBACCO USE 08-22-2016 [facility] [id number] CELLULITIS 06-20-2016 ST OF LEFT GAIL UPPER LIMB PHYSICIANS R590 LOCALIZED 06-20-2016 ENLARGED GAIL LYMPH NODES PHYSICIANS Z6832 BODY MASS 06-20-2016 ST INDEX BMI GAIL 32.0-32.9 PHYSICIANS ADULT R002 PALPITATION 06-14-2016 [facility] R079 CHEST PAIN 06-14-2016 [facility] UNSPECIFIED PHYSICIANS GROUP I10 ESSENTIAL 01-21-2016 [facility] HYPERTENSIO INC N K219 GASTRO-ESOP 01-21-2016 [facility]UX [facility] DISEASE INC WITHOUT ESOPHAGITIS C09148 CUTANEOUS 01-21-2016 [facility] ABSCESS [facility]YS[facility]ANS, BACK ANY PLLC PART EXCEPT BUTTOCK [id number] FURUNCLE OF 01-21-2016 [facility] BACK ANY [facility] PART EXCEPT INC BUTTOCK J209 ACUTE 06-08-2015 ST BRONCHITIS GAIL UNSPECIFIED PHYSICIANS R69 ILLNESS 06-08-2015 [facility] UNSPECIFIED INC REGION 9 I517 CARDIOMEGAL 04-25-2015 [facility] 4254 OTHER 03-01-2015 [facility] CARDIOMYOPA INC LONG 4139 OTHER AND 12-30-2014 [facility] UNSPECIFIED [facility] ANGINA INC PECTORIS 490 BRONCHITIS 12-30-2014 [facility] NOT [facility] SPECIFIED INC ACUTE OR CHRONIC 44367 12-30-2014 [facility] CAC INC REGION 9 4280 CONGESTIVE 12-20-2014 [facility] FAILURE INC UNSPECIFIED 89043 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-2014 [facility]IC [facility] HEART INC FAILURE 39003 ACUTE 12-20-2014 [facility] SYSTOLIC L[facility]ART CONSULTANTS FAILURE O 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 [address]32 CHEST PAIN 12-20-2014 [facility] UNSPECIFIED [facility] INC V1749 FAMILY 12-20-2014 [facility] HISTORY OF LAR OTHER CONSULTANTS CARDIOVASCU O LAR DISEASES 4240 MITRAL 12-14-2014 [facility] 6822 CELLULITIS 11-07-2014 ANN JESUS AND ABSCESS OF TRUNK 6829 CELLULITIS 11-07-2014 ST AND ABSCESS GAIL OF PHYSICIANS UNSPECIFIED SITE 41694 NAUSEA 07-19-2013 ST ALONE [facility] MED CTR WEIGHT [facility] [address] PAIN IN 07-15-2013 [facility] SH[facility]ER [facility] 8409 SPRAIN&STRA 07-15-2013 ST IN UNSPEC GAIL SITE MED CTR WEIGHT LOSS CONSULTANT SHOULDER&UP ST PER ARM V1204 PERSONAL HX 07-15-2013 ST OF GAIL METHICILLIN MED CTR WEIGHT LOSS CONSULTANT RESIST ST STAPH AUREUS 4619 ACUTE 08-01-2008 [...] 00 8- 6- 00 00 UC ve NE 51 20 20 83 [place] 30 [...] 00 7- 2- 00 00 UC ve NE 51 20 20 83 [place] 30 [...] 00 9- 4- 00 00 UC ve NE 51 20 20 83 [place] 30 [...] 00 4- 0- 00 00 UC ve NE 51 20 20 83 [place] 30 [...] 00 8- 0- 00 00 UC ve NE 51 20 20 83 [place] 30 [...] 00 6- 3- 00 00 UC ve NE 51 20 20 83 [place] 30 [...] 20 AR LI 90 09 09 MA PR N 5 CY NA 50 C 0 #5 MG 43 7 CA PS UL E LO 00 03 03 00 30 30 CV 48 KA Ac RA 78 -0 -1 .0 S 57 LF ti TA 15 2- 2- 00 PH 30 ve DI 07 20 20 AR NE 70 09 09 MA PR 1 CY NA 10 C #5 MG [...] 20 0 AR 21 09 09 MA PR 6 CY NA C #5 43 7 [...] 20 AR HO 20 08 08 MA PR XA 5 CY NA ZO C LE [...] Procedure DOS Code Location Performer Comment ECG 51181 [facility] CONRAD[facility] ROUTINE 7 PHYSICIAN ECG S GROUP W/LEAST 12 LDS I&R ONLY ECG 50071 [facility] ROUTINE 7 [facility] ECG INC INC W/LEAST 12 LDS TRCG ONLY W/O I&R SUSCEPTIB 90099 [facility] LTY STDY 6 [facility] ANTIMICRB INC INC IAL MICRO/AGA R DILUTJ CUL BACT 49091 [facility] XCPT 6 [facility] URINE INC INC BLOOD/STO OL AEROBIC ISOL CUL BACT 83439 [facility] AEROBIC 6 [facility] ADDL INC INC METHS DEFINITIV E EA ISOL INCISION 18120 [facility] & 6 [facility] DRAINAGE INC INC ABSCESS SIMPLE/SI NGLE INCISION 16287 FR[facility] DIAZ & 6 PHYSICIAN JR ELZ DRAINAGE S, PLLC ABSCESS COMPLICAT ED/MULTIP LE INCISION 86955 FR[facility] DIAZ & 6 PHYSICIAN JR ELZ DRAINAGE S, PLLC ABSCESS COMPLICAT ED/MULTIP LE INCISION 99281 [facility] & 6 [facility] DRAINAGE INC INC ABSCESS SIMPLE/SI NGLE NONEMERGE A0100 LKLP CAC ANANETTS NCY 6 INC [facility]SP[facility]; L TAXI NONEMERGE A0100 LKLP [facility] BENNETTS NCY 5 INC TRANSPORT TRANSPORT REGION 9 ATION CO ATION; L TAXI ECHO 88391 [place] [facility] TTC R-T 5 MEDICAL 2D SERV W/WOM-MOD FOUNDATIO E COMPL N SPEC&COLR D NONEMERGE A0100 [facility]EN[facility]TS NCY 5 INC TRANSPORT TRANSPORT REGION 9 ATION CO ATION; L TAXI NONEMERGE A0100 LKLP CAC VAZQUEZS NCY 5 INC TRANSPORT TRANSPORT REGION 9 [facility] CO ATION; L TAXI ECG 26608 [facility] ROUTINE 5 MEM HOSP MEM HOSP ECG INC INC W/LEAST 12 LDS TRCG ONLY W/O I&R ECG 07943 [facility] ROUTINE 5 MEM HOSP MEM HOSP ECG INC INC W/LEAST 12 LDS TRCG ONLY W/O I&R NONEMERGE A0100 LKLP CAC BENMICHAELS NCY 5 INC TRANSPORT TRANSPORT REGION 9 [facility] CO ATION; L TAXI R & L HRT 23445 [facility] CATH 5 [facility] WINJX HRT INC INC ART& L VENTR IMG CATHETER C1725 [facility] TRANSLUMI 5 [facility] NAL INC INC ANGIOPLAS TY NON-LASER GUIDE C1769 [facility] WIRE 5 MEM [facility] MEM [facility]OS[facility] INC INC LOCM Q9967 [facility] 300-399 5 [facility] MG/ML INC INC IODINE CONCENTRA TION PER ML BASIC 23857 [facility] METABOLIC 5 [facility] PANEL INC INC CALCIUM TOTAL INTRDUCR/ C1894 [facility] SHEATH 5 [facility] NOT GUID INC INC INTRACARD EP NON-LASR BLOOD 66294 [facility] GASES ANY 5 [facility] INC INC COMBINATI ON PH PCO2 PO2 CO2 HCO3 THROMBOPL 48115 [facility] ASTIN 5 [facility] TIME INC INC PARTIAL PLASMA/WH OLE BLOOD BLOOD 74256 [facility] COUNT 5 [facility] COMPLETE INC INC AUTO&AUTO DIFRNTL WBC INJECTION J1644 [facility] HEPARIN 5 [facility] SODIUM INC INC PER 1000 UNITS PROTHROMB 49416 [facility] IN TIME 5 MEM H[facility] HOS[facility] INC INC NONEMERGE A0100 LKLP [facility]EN[facility]TS NCY 5 INC TRANSPORT TRANSPORT REGION 9 ATION CO ATION; L TAXI NONEMERGE A0100 LKLP [facility] BEN[facility]TS NCY 5 INC TRANSPORT TRANSPORT REGION 9 ATION CO ATION; L TAXI ECHO 51742 BARBARA CONTRERAS SCOTT TTHRC R-T 5 MEDICAL 2D SERV W/WOM-MOD FOUNDATIO E COMPL N SPEC&COLR D RADIOLOGI 46863 [place] JANET C 5 MEDICAL PATRICK EXAMINATI IMAGING ON CHEST ASS SINGLE VIEW FRONTAL SEDIMENTA [address] TION RATE 4 GAIL GAIL RBC MED CTR MED CTR AUTOMATED WEIGHT LOSS CONSULTANT ST WEIGHT LOSS CONSULTANT ST BASIC [address] METABOLIC 4 GAIL GALI PANEL MED CTR MED CTR CALCIUM WEIGHT LOSS CONSULTANT ST WEIGHT LOSS CONSULTANT ST TOTAL BLOOD [address] COUNT 4 GAIL GAIL COMPLETE MED CTR MED CTR AUTO&AUTO WEIGHT LOSS CONSULTANT ST WEIGHT LOSS CONSULTANT ST DIFRNTL WBC SHOULDER L3650 [facility] 4 TECHNOLOG TECHNOLOG FIG 8 IES INC IES INC ABDUCT RESTRAINE R PREFAB RADEX 50790 RADI[facility] ARLEN SHOULDER 4 ALLYSSA COMPLETE ASSOCIATE MINIMUM 2 S OF NOTH VIEWS DETERMINA 29578 QAMAR FOOTE TION 8 YELENA Miranda REFRACTIV E STATE SPHERE V2100 QAMAR FOOTE SINGLE 8 YELENA Miranda VISION PLANO +/- 4.00 PER LENS OPHTH 88666 QAMAR FOOTE, MEDICAL 8 YELENA Miranda XM&EVAL COMPRHNSV ESTAB PT 1/> FITTING 38818 QAMAR FOOTE SPECTACLE 8 YELENA Miranda S XCPT APHAKIA MONOFOCAL FRAMES V2020 QAMAR FOOTE PURCHASES 8 YELENA Miranda Encounters Encounter Start End Date Code Location Performer Type Date OFFICE 75093 [facility] 7 [facility] VISIT 15 PHYSICIAN MINUTES S OFFICE 09927 [facility] 7 GAIL T VISIT 15 PHYSICIAN MINUTES S [facility]OSPITAL [facility] - 7 7 [facility] OUTPATIEN INC T [facility] - 6 6 [facility] OUTPATIEN INC T EMERGENCY 57720 [facility] 6 6 MEM H[facility] DEPARTMEN INC T VISIT MODERATE SEVERITY EMERGENCY 74567 FRED DIAZ, 6 6 PHYSICIAN JR [facility]TER[facility], [facility] T VISIT HIGH/URGE NT SEVERITY EMERGENCY 78834 FRED DIAZ, 6 6 PHYSICIAN JR OTERO [facility], [facility] T VISIT MODERATE SEVERITY [facility]OSPITAL [facility] - 6 6 [facility] OUTPATI[facility] INC T EMERGENCY 30017 [facility] 6 6 [facility] DEPART[facility] INC T VISIT HIGH/URGE NT SEVERITY OFFICE 93589 [facility] 6 GAIL JESUS T VISIT 15 PHYSICIAN MINUTES S HOSPITAL [facility] - 5 5 [facility] OUTPATIEN INC T [facility] - 5 5 [facility] OUTPATIEN INC T [facility] - 5 5 [facility] OUTPATIEN INC T OFFICE 83057 [facility] 5 GAIL JESUS T VISIT 15 PHYSICIAN MINUTES S EMERGENCY 43154 ANN JUAREZ 5 5 [facility] VISIT HIGH/URGE NT SEVERITY HOSPITAL ST - 4 4 GAIL OUTPATIEN MED CTR T [facility] ST - 4 4 [facility] OUTPATIEN MED CTR T WEIGHT LOSS CONSULTANT EMERGENCY 55[address] [facility] 4 4 GAIL JERRY DEPARTMEN MED CTR T VISIT MODERATE SEVERITY OFFICE 25369 PATIENT JORDAN RUBIO 9 9 FIRST ELIANA T VISIT PHYS 15 MINUTES
--- OUTSIDE RECORDS SUMMARY | 2016-12-03 16:30 | External Medical Summary Rpt ---
Author Author [employer], [employer] Organization [employer] Address Unknown Phone Unavailable Results Sed Rate Observa Value Referen Units Interpr Notes Date tion ce etation Range Erythro 6 0 - 15 mm No No Jul 19 cyte informa informa 2014 sedimen tion in tion in 11:20 tation source source PM rate by data data [place]ester[place] rayray method Auto Diff Observa Value Referen Units Interpr Notes Date tion ce etation Range Neutrop 66.7 No % No No Jul 19 hils informa informa informa 2013 [#/volu tion in tion in tion in 10:26 me] in source source source PM Blood data data data by Automat ed count Lymphoc 25.9 No % No No Jul 19 ytes informa informa informa 2013 [#/volu tion in tion in tion in 10:26 me] in source source source PM Blood data data data by Automat ed count Monocyt 6.6 No % No No Jul 19 es informa informa informa 2013 [#/volu tion in tion in tion in 10:26 me] in source source source PM Blood data data data by Automat ed count Eosinop 0.4 No % No No Jul 19 hils/10 informa informa informa 2014 0 tion in tion in tion in 10:26 leukocy source source source PM yaniv in data data data Blood by Automat ed count Basophi 0.4 No % No No Jul 19 ls/100 informa informa informa 2014 leukocy tion in tion in tion in 10:26 yaniv in source source source PM Blood data data data by Automat ed count Neutrop 6.9 1.8 - x10(3)/ No No Jul 19 hils 7.7 mcL informa informa 2014 [#/volu tion in tion in 10:26 me] in source source PM Blood data data by Automat ed count Lymphoc 2.7 0.6 - x10(3)/ No No b 17 ytes 4.8 mcL informa informa 2013 [#/volu tion in tion in 10:26 me] in source source PM Blood data data Monocyt 0.7 0.0 - x10(3)/ No No b 17 es 1.3 mcL informa informa 2013 [#/volu tion in tion in 10:26 me] in source source PM Blood data data by Automat ed count Eosinop 0.0 0.0 - x10(3)/ No No b 17 hils 0.5 mcL informa informa 2013 [#/volu tion in tion in 10:26 me] in source source PM Blood data data Basophi 0.0 0.0 - x10(3)/ No No b 17 ls 0.2 mcL informa informa 2013 [#/volu tion in tion in 10:26 me] in source source PM Blood data data by Manual count CBC Observa Value Referen Units Interpr Notes Date tion ce etation Range LEUKOCY 10.4 4.0 - x10(3)/ No No b 17 YANIV 11.0 mcL informa informa 2013 tion in tion in 10:26 source source PM data data Erythro 6.14 4.30 - x10(6)/ High No b cytes 5.81 mcL informa 2013 [#/volu tion in 10:26 me] in source PM Blood data by Automat ed count Hemoglo 18.3 13.5 - gm/dL High No b bin 17.1 informa 2013 [Mass/v tion in 10:26 olume] source PM in data Blood Hematoc 54.5 38.9 - % High No b 17 rit 51.6 informa 2013 [Volume tion in 10:26 source PM Fractio data n] of Blood by Automat ed count Erythro 88.9 82.5 - fL No No b cyte 99.8 informa informa 2013 mean tion in tion in 10:26 corpusc source source PM ular data data volume [Entiti c volume] by Automat ed count Erythro 29.7 27.0 - pg No No b cyte 34.3 informa informa 2013 mean tion in tion in 10:26 corpusc source source PM ular data data hemoglo bin [Entiti c mass] by Automat ed count Erythro 33.5 32.1 - gm/dL No No Feb 17 cyte 35.3 informa informa 2013 mean tion in tion in 10:26 corpusc source source PM ular data data hemoglo bin concent ration [Mass/v olume] by Automat ed count Erythro 14.4 11.5 - % No No Feb 17 cyte 15.0 informa informa 2013 distrib tion in tion in 10:26 ution source source PM width data data [Ratio] by Automat ed count Platele 259 144 - x10(3)/ No No Feb 17 ts 423 mcL informa informa 2013 [#/volu tion in tion in 10:26 me] in source source PM Blood data data by Automat ed count Platele 8.9 6.8 - fL No No b 17 t mean 10.8 informa informa 2014 volume tion in tion in 10:26 [Entiti source source PM c data data volume] in Blood by Automat ed count BMP Observa Value Referen Units Interpr Notes Date tion ce etation Range Sodium 137 136 - mmol/L No No Feb 17 [Moles/ 145 informa informa 2014 volume] tion in tion in 10:09 in source source PM Serum data data or Plasma Potassi 4.9 3.5 - mmol/L No No Feb 17 um 5.0 informa informa 2013 [Moles/ tion in tion in 10:09 volume] source source PM in data data Serum or Plasma Chlorid 97 98 - mmol/L Low No Feb 17 e 107 informa 2013 [Moles/ tion in 10:09 volume] source PM in data Serum or Plasma Carbon 29 22 - 29 mmol/L No No Feb 17 dioxide informa informa 2014 , total tion in tion in 10:09 source source PM [Moles/ data data volume] in Serum or Plasma Anion 11 7 - 16 mmol/L No No Feb 17 gap in informa informa 2014 Serum tion in tion in 10:09 or source source PM Plasma data data CALCIUM 10.0 8.6 - mg/dL No No Feb 17 .TOTAL 10.0 informa informa 2014 tion in tion in 10:09 source source PM data data Glucose 87 74 - mg/dL No No Jul 19 109 informa informa 2013 [Mass/v tion in tion in 10:09 olume] source source PM in data data Serum or Plasma Urea 13 6 - 20 mg/dL No No Jul 19 nitroge informa informa 2013 n tion in tion in 10:09 [Mass/v source source PM olume] data data in Serum or Plasma Creatin 0.90 0.67 - mg/dL No No Jul 19 ine 1.17 informa informa 2013 [Mass/v tion in tion in 10:09 olume] source source PM in data data Serum or Plasma XR SHOULDER RIGHT 4 VIEWS Observa Value Referen Units Interpr Notes Date tion ce etation Range Right No No No No Jul 15 shoulde informa informa informa informa 2013 r 4 tion in tion in tion in tion in 11:35 views: source source source source AM 07/15/19 data data data data 14\.br\ \.br\Hi story: Pain, no known injury\ .br\\.b r\Impre ssion: No signifi cant osseous , joint or soft tissue abnorma lity is\.br\ seen.
--- OUTSIDE RECORDS SUMMARY | 2016-12-03 16:30 | External Medical Summary Rpt ---
Author Author , Organization [employer] Address Unknown Phone Unavailable Purpose Continuity of Care Document - 1989 through 2016 Immunization Name Date Route CVX Reacti Commen Provid Is Given on t er Refuse d Tdap, Histor [place] No Adsorb 2013 ical ed Inform ation - Source Unspec ified Hep B, Histor H196 No 2002 ical ped/ad Inform ol ation - Source Unspec ified Td Histor H196 No (adult 2002 ical ), Inform adsorb ation ed - Source Unspec ified Hep B, Histor H196 No 2001 ical ped/ad Inform ol ation - Source Unspec ified MMR Histor H196 No 2001 ical Inform ation - Source Unspec ified Hep B, Histor H196 No 2001 ical ped/ad Inform ol ation - Source Unspec ified DTaP Histor [place] No (Infan 1993 ical erickson) Inform ation - Source Unspec ified Hib, Histor [place] No UF 1990 ical Inform ation - Source Unspec ified MMR Histor [place] No 1990 ical Inform ation - Source Unspec ified DTaP Histor [place] No (Infan 1990 ical erickson) Inform ation - Source Unspec ified DTaP Histor [place] No (Infan 1989 ical erickson) Inform ation - Source Unspec ified DTaP Histor [place] No (Infan 1989 ical erickson) Inform ation - Source Unspec ified DTaP Histor [place] No (Infan 1989 uscula ical erickson) r Inform ation - Source Unspec ified
--- OUTSIDE RECORDS SUMMARY | 2016-12-03 16:30 | External Medical Summary Rpt ---
Author Author , Organization [employer] Address Unknown Phone Unavailable Purpose Continuity of Care Document - 1989 through 2016 Immunization Name Date Route CVX Reacti Commen Provid Is Given on t er Refuse d Tdap, Histor [place] No Adsorb 2013 ical ed Inform ation [...] ation - Source Unspec ified DTaP Histor [place] No (Infan 1993 ical erickson) Inform ation - Source Unspec ified Hib, Histor [place] No UF 1990 ical Inform ation - Source Unspec ified MMR Histor [place] No 1990 ical Inform ation - Source Unspec ified DTaP Histor [place] No (Infan 1990 ical erickson) Inform ation - Source Unspec ified DTaP Histor [place] No (Infan 1989 ical erickson) Inform ation - Source Unspec ified DTaP Histor [place] No (Infan 1989 ical erickson) Inform ation - Source Unspec ified DTaP Histor [place] No (Infan 1989 uscula ical erickson) r Inform ation - Source Unspec ified
[2016-12-03] MEDS ORDERED: GENTAMICIN O5 ML/BOT OP (16:38)
--- NOTE | 2016-12-03 16:38 | Urgent Treatment Center Report ---
History of Present Issue Date/Time Seen by Provider 12/03/16 5229 Visit Reason Pt arrived:Walked Presenting Problem:PT STATES LAST NIGHT HIS LEFT EYE BEGAN TO HAVE REDNESS, PAIN AND DRAINAGE Location if Accident: Onset of symptoms date/time:12/02/16/ or onset unknown for:MEDICAL HX UNKNOWN Have you (or family members/close friends) recently traveled outside the [place]? N If Yes, where/when: Have you had exposure to infectious disease within the past month? TB? Other? Specify: Patient state that he noticed last night that his left eye began to drain and having pain and felt itchy. States that then he noticed that he was having more pain and draining and then started turning red. States that he went to bed and woke up this morning and eye was very red and matted together. States that drainage has continued to worsen and his brother told him it looked like he may have the "pink eye" so he came in to get checked ALLERGIES Coded Allergies: No Known Allergies (12/28/15) Home Medications Reported Medications ASPIRIN (Aspirin 325MG) 81 MG PO DAILY Lisinopril 5 MG NG #60 Carvedilol 6.25 MG PO #60 Isosorbide Dinitrate 30 MG PO BID #60 History Medical History General CAD? No Angina: Yes DC: No Hypertension? Yes Hyperlipidemia? No CHF? No DVT? No PE? No COPD? No Asthma? Yes Anemia? No GERD? Yes Gastric ulcers? No GI Bleed? No Hernia? No Thyroid Problems? No Hypothyroidism? No CVA? No Seizures? No Diabetes? No UTI? No Stones? No GB Disease: No Nephritic Syndrome? No Asplenia? No Hepatitis? No Sickle Cell Disease? No Arthritis? No Migraines? No Cataracts? No Glaucoma? No MRSA? Yes HIV? No TB? No Anxiety? No Depression? No Cancer? No Immunization HX DT/Tetanus > 10 Years Ago Flu Refused Pneumonia Refuses Surgical Hx Previous Surgery?Y HEART SURGERY -VALVE HEART STENT Family History Family HX Diabetes No CAD No Hypertension Yes Hyperlipidemia No Cancer No TB No Social History Smoking Hx Smoker: Current Every Day Smoker Tobacco: Yes Type Cigarettes Packs/day 1 1/2 - 2 Packs Alcohol Alcohol: No Review of Systems All Other Systems Reviewed and Negative Eyes drainage, inflammation, other (eye red, draining (L)) Physical Exam Vital Signs Vital Signs Date Time Temp Pulse Resp B/P Pulse O2 O2 Flow FiO2 Ox Delivery Rate 12/03 1625 97.7 75 20 137/86 98 General Appearance normal appearance, WD/WN, no apparent distress, Male Patient dressed appropriately for the weather sitting on exam table in no distress Eye Exam - right eye other, bilateral eye PERRL Comment Left eye red conjunctiva, matting noted with thick drainage from eye Respiratory Status Yes: trachea midline, chest symmetrical, non tender chest. No: respiratory distress. 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 No Departure Departure Time of Disposition 1635 Disposition DC Home or Self Care(routine) Clinical Impression Primary Impression: Conjunctivitis Qualifiers: Conjunctivitis type: acute Acute conjunctivitis type: bacterial Laterality: left Qualified Code: H10.32 - Unspecified acute conjunctivitis, left eye Condition STABLE Referrals YULISA MARIE (Family): 3 Days-Call Office if no improvement Patient Instructions Conjunctivitis, DI for Conjunctivitis Additional Instructions Wash hands before and after administration of drops Use warm wash rag to clean eye and will help remove matting from eyes in the morning, use mild baby shampoo to clean eye Follow up with family doctor or eye doctor if you began having any trouble with your vision Use drops as prescribed Discharge Counseling Counseled pt/family regarding diagnosis, medications/RX, home care, follow up needs Prescriptions Current Visit Scripts GENTAMICIN SULFATE (GENTAMICIN 0.3% OPH SOLJadiel) 1-2 DROP OP QID #1 BOT TO AFFECTED EYE(S) at 1636
[2016-12-03 16:41] VITALS: BP 137/86
== END 2016-12-03 16:41 | disposition home or self-care (01) ==
LOC: UTC 16:16
DX: H10.32 Unspecified acute conjunctivitis, left eye (principal); I10 Essential (primary) hypertension; Z72.0 Tobacco use

== ENCOUNTER → 2016-12-13 | Outpatient (CLI) | payer MEDICAID ==
[~2016-12-13] MED LIST changes: +GENTAMICIN O5 ML/BOT OP
--- NOTE | 2016-12-14 00:06 | RADIOLOGY REPORT PS360 ---
CHEST(2 VIEWS-NOT PORTABLE) Ordering physician: Harvey Barfield MD Age: 26 years Male INDICATION: chest pain usingCM, CHEST PAIN, WHEEZING PROCEDURE: CHEST(2 VIEWS-NOT PORTABLE) FINDINGS : COMPARISON is made to 09/28/2014 been no significant interval change Lungs well expanded and clear with nothing definitely acute. No pneumothorax. No pleural effusion. Heart normal size. Normal pulmonary vascularity. Hilar and mediastinal structures appear satisfactory. Chest wall unremarkable. There is kyphosis lower thoracic spine due to mild wedging of T11.. Most likely old feature. Although may be history of old trauma here, cannot exclude congenital variation and wedging at T11.... IMPRESSION Stable chest with nothing definitely acute. Lungs clear.
== END ==
LOC: RAD 10:04
DX: R07.9 Chest pain, unspecified (principal); I42.9 Cardiomyopathy, unspecified; R06.2 Wheezing